=== PATIENT | female | born 1950 | race Caucasian/White ===

== ENCOUNTER 2018-09-16 21:47 | Inpatient (IN) | payer MEDICARE ==
[~2018-09-16] VITALS: Ht 160 cm; Wt 97.3 kg
[2018-09-16] MEDS ORDERED: ASPIRIN 81 MG TABLET CHEW PO ONE (22:00)
[2018-09-16] MEDS ORDERED: AZITHROMYCIN 500 MG TABLET PO ONE (22:00)
[2018-09-16] MEDS: CEFTRIAXONE PMX 1GM/50ML 50 ML IV SCH (22:00)
[2018-09-16] MEDS ORDERED: methylPREDNISolone SOD SUCC 125 MG/2 ML IVP ONE (22:00)
[2018-09-16] MEDS ORDERED: ALBUTEROL SULFATE 2.5 MG/3 ML NPPB ONE (22:00)
[2018-09-16] MEDS ORDERED: IRON1TAB60 PO (22:01)
[2018-09-16] MEDS ORDERED: ATOR20TA37 PO (22:01)
[2018-09-16] MEDS ORDERED: LISI-167 PO (22:01)
[2018-09-16] MEDS ORDERED: FURO80TA3 PO (22:01)
[2018-09-16] MEDS ORDERED: VITAMINS (22:01)
[2018-09-16] MEDS ORDERED: ASPIRIN 325 MG TABLET ONE (22:33)
[2018-09-16] MEDS ORDERED: AZITHROMYCIN 250 MG TABLET ONE (22:33)
[2018-09-16] MEDS ORDERED: CEFTRIAXONE PMX 1GM/50ML 50 ML ONE (22:33)
[2018-09-16] MEDS ORDERED: methylPREDNISolone SOD SUCC 125 MG/2 ML ONE (22:34)
--- NOTE | 2018-09-16 22:48 | NUR ---
LATE ENTRY: PT ARRIVES TO ED VIA EMS AND IS A [employer] DIV[employer]. PT ARRIVES FROM [facility] AFTER HAVING SOB FOR 2 DAYS AND GETTING WORSE AT THIS TIME. PT RPEORTS SHE HAS COPD AND WAS USIGN HER HOME NEBULIZER WITH NO RELIEF. PT REPROTS THAT HOME O2 NEEDS INCREASED TO 5 L. PT ON 3.5 L NC FOR US AND END TIDAL IN 28-34 AT THIS TIME AND MD AWARE. PT IS A/OX4 AND DOES HAVE LABORED BREATHING AT THIS TIME BUT IS ANXIOUS. PT CONNECTED TO ALL MONITORS AND CALL LIGHT IN REACH. EKG COMPLETED AND PIV PLACED BY THIS RN.
--- NOTE | 2018-09-16 22:51 | NUR ---
PT HAS BEEN MEDICATED PER EMAR AND GIVEN PILLOW FOR COMFORT.
[2018-09-16 22:56] LABS: BASOPHILS # (AUTO) 0.01 x10^3/uL (0-0.1); BASOPHILS % (AUTO) 0 % (0-1); EOSINOPHILS % (AUTO) 4 % (1-7); LYMPHOCYTES # (AUTO) 0.21 x10^3/uL (1-3.4); LYMPHOCYTES % (AUTO) 3 % (22-44); MD NO; MEAN CORPUSCULAR HEMOGLOBIN 28.7 pg (27.0-34.8); MEAN CORPUSCULAR HGB CONC 31.7 g/dL (32.4-35.8); MEAN CORPUSCULAR VOLUME 90.3 fL (80-100); MEAN PLATELET VOLUME 8.1 fL (7.4-10.4); MONOCYTES # (AUTO) 0.28 x10^3/uL (0.2-0.8); MONOCYTES % (AUTO) 4 % (2-9); NEUTROPHILS # (AUTO) 7.23 x10^3/uL (1.8-6.8); NEUTROPHILS % (AUTO) 90 % (42-75); PLATELET COUNT 152 x10^3/uL (130-400); RED BLOOD COUNT 3.03 x10^6/uL (3.82-5.3)
--- NOTE | 2018-09-16 23:01 | NUR ---
MD INFORMED OF INCREASED WOB. PT TO BE PLACED ON OPTIFLOW AT THIS TIME.
[2018-09-16 23:02] LABS: ALANINE AMINOTRANSFERASE 16 U/L (12-78); ALBUMIN 3.2 g/dL (3.4-5.0); ANION GAP 7 mmol/L (5-15); CALCIUM 8.3 mg/dL (8.5-10.1); CHLORIDE 104 mmol/L (98-107); CREATININE 3.69 mg/dL (0.55-1.02)
[2018-09-16 23:06] LABS: ALKALINE PHOSPHATASE 67 U/L (45-117); BILIRUBIN,TOTAL 0.7 mg/dL (0.2-1.0); TOTAL PROTEIN 6.3 g/dL (6.4-8.2); TROPONIN I 0.067 ng/mL (0.000-0.045)
--- NOTE | 2018-09-16 23:43 | NUR ---
NADIYA DAUGHTER CALLED AT THIS TO COME TO ED. INFORMED OF DAUGHTERS CONDITION AT THIS TIME. PT RESTING IN BED AT THIS TIME.
--- NOTE | 2018-09-17 00:11 | NUR ---
BEDSIDE REPORT TO IVANA ULLOA.
--- NOTE | 2018-09-17 00:24 | NUR ---
POC DISCUSSED WITH PT AND FAMILY. PT REMAINS HESITANT TO AGREE TO INTUBATION IF NEEDED. FAMILY AT BEDSIDE ENCOURAGING PT TO ALLOW INTUBATION IF NEEDED. PT ABLE TO SPEAK MOSTLY FULL SENTENCES. PT STATES SHE FEELS BETTER THAN WHEN SHE GOT HERE. PT AND FAMILY DENY FURTHER NEEDS AT THIS TIME.
--- NOTE | 2018-09-17 00:45 | NUR ---
FLAVIA NGUYEN HAS CONTACTED THE HOSPITALIST AGAIN REQUESTING HE COME SEE THE PT FOR ADMISSION.
--- NOTE | 2018-09-17 01:00 | NUR ---
PT STATING SHE HAS TO HAVE BM. PT AGREED TO BEDPAN. UNABLE TO PASS STOOL IN BED. PT ASSISTED TO BEDSIDE COMMODE AT THIS TIME. PT TOLERATED TRANSITION WELL.
--- NOTE | 2018-09-17 01:07 | NUR ---
PT HAD NO BM. FULL LINEN CHANGE PERFORMED. PT NOW BACK IN BED. PT ALSO TOLERATED THIS MOVE WELL. POC DISCUSSED. PT AND FAMILY DENY FURTHER NEEDS AT THIS TIME.
--- NOTE | 2018-09-17 01:16 | NUR ---
FLU SWAB OBTAINED AND TUBED TO LAB.
--- NOTE | 2018-09-17 01:19 | NUR ---
STILL AWAITING DR NIEVES AT THIS TIME. APOLOGIES GIVEN TO FAMILY AND PT FOR WAIT TIME. POC DISCUSSED. PT AND FAMILY DENY FURTHER NEEDS AT THIS TIME.
--- NOTE | 2018-09-17 01:28 | NUR ---
[facility] AT BEDSIDE.
[2018-09-17] MEDS ORDERED: DOCUSATE 100 MG CAPSULE PO PRN (01:30)
[2018-09-17] MEDS ORDERED: ONDANSETRON 2MG/ML, 2ML IVPush PRN (01:30)
[2018-09-17] MEDS ORDERED: OXYcodone IR 5MG TABLET PO PRN (01:30)
[2018-09-17] MEDS ORDERED: BISACODYL 10 MG SUPP PR PRN (01:30)
[2018-09-17] MEDS ORDERED: hydrALAzine 20 MG/ML, 1ML IVPush PRN (01:30)
[2018-09-17] MEDS ORDERED: ONDANSETRON ODT 4 MG PO PRN (01:30)
[2018-09-17] MEDS ORDERED: LABETALOL 5 MG/ML SYRINGE IVPush PRN (01:30)
[2018-09-17] MEDS ORDERED: PROMETHAZINE 25 MG/ML, 1ML IM PRN (01:30)
[2018-09-17] MEDS ORDERED: morphine SULFATE 10 MG/ML, 1ML IVPush PRN (01:30)
[2018-09-17] MEDS ORDERED: ACETAMINOPHEN 325 MG TABLET PO PRN (01:30)
[2018-09-17] MEDS ORDERED: POLYETHYLENE GLYCOL 17 GM PACKET PO PRN (01:30)
[2018-09-17 01:45] LABS: RAPID INFLUENZA A Negative (Negative); RAPID INFLUENZA B Negative (Negative)
[2018-09-17] MEDS ORDERED: ALPR0.25 PO (01:50)
[2018-09-17] MEDS ORDERED: HEPARIN 5,000 UNITS/ML, 1ML ONE (01:53)
[2018-09-17] MEDS: HEPARIN 5,000 UNITS/ML, 1ML SQ SCH ×4 (01:55→23:36)
[2018-09-17] MEDS ORDERED: ALBUTEROL/IPRATROPIUM 2.5MG/0.5MG, 3 ML NPPB PRN (02:00)
[2018-09-17 02:29] VITALS: BP 180/63
[2018-09-17] MEDS: INSULIN LISPRO 100 UNITS/ML, PEN SQ-INSULIN SCH ×5 (03:01→20:49)
[2018-09-17 03:08] LABS: FREE T4 (FREE THYROXINE) 1.15 ng/dL (0.76-1.46); THYROID STIMULATING HORMONE 1.42 mIU/L (0.358-3.740)
[2018-09-17 04:50] LABS: HEMOGLOBIN A1C 4.6 % (4.2-6.3)
[2018-09-17] MEDS ORDERED: ALBUTEROL/IPRATROPIUM 2.5MG/0.5MG, 3 ML NPPB SCH (07:00)
[2018-09-17] MEDS: MULTIVITAMINS WITH IRON TABLET PO SCH (08:41)
[2018-09-17] MEDS: LISINOPRIL 10 MG TABLET PO SCH ×2 (08:41→20:48)
[2018-09-17] MEDS: FUROSEMIDE 80 MG TABLET PO SCH (08:41)
[2018-09-17 14:29] VITALS: BP 158/66
[2018-09-17] MEDS ORDERED: VANCOMYCIN PER PHARMACY MC PRN (15:30)
[2018-09-17] MEDS ORDERED: PHARMACOKINETIC MONITORING MC PRN (16:00)
[2018-09-17] MEDS ORDERED: VANCOMYCIN 1,800 MG in SODIUM CHLORIDE 0.9% 250 ML IV ONE (16:00)
[2018-09-17] MEDS ORDERED: VANCOMYCIN 1,400 MG in SODIUM CHLORIDE 0.9% 250 ML IV ONE (16:00)
[2018-09-17] MEDS ORDERED: PHARMACOKINETIC CONSULTATION MC ONE (16:00)
[2018-09-17 20:00] VITALS: BP 182/69
[2018-09-17] MEDS ORDERED: ATORVASTATIN 40 MG TABLET PO SCH (21:00)
[2018-09-17] MEDS: CEFTRIAXONE PMX 1GM/50ML 50 ML IV SCH (22:38)
[2018-09-17] MEDS ORDERED: AZITHROMYCIN 500 MG in SODIUM CHLORIDE 0.9% 250 ML IV SCH (23:00)
[2018-09-17] MEDS ORDERED: CEFTRIAXONE PMX 1GM/50ML 50 ML IV SCH (23:00)
[2018-09-18 02:00] VITALS: BP 152/72
[2018-09-18 06:11] LABS: BASOPHILS # (AUTO) 0.01 x10^3/uL (0-0.1); BASOPHILS % (AUTO) 0 % (0-1); EOSINOPHILS # (AUTO) 0.01 x10^3/uL (0-0.4); EOSINOPHILS % (AUTO) 0 % (1-7); LYMPHOCYTES # (AUTO) 0.47 x10^3/uL (1-3.4); LYMPHOCYTES % (AUTO) 5 % (22-44); MD NO; MEAN CORPUSCULAR HEMOGLOBIN 28.7 pg (27.0-34.8); MEAN CORPUSCULAR VOLUME 89.9 fL (80-100); MEAN PLATELET VOLUME 7.9 fL (7.4-10.4); MONOCYTES # (AUTO) 0.65 x10^3/uL (0.2-0.8); MONOCYTES % (AUTO) 7 % (2-9); NEUTROPHILS # (AUTO) 8.18 x10^3/uL (1.8-6.8); NEUTROPHILS % (AUTO) 88 % (42-75); PLATELET COUNT 165 x10^3/uL (130-400); RED BLOOD COUNT 2.81 x10^6/uL (3.82-5.3); RED CELL DISTRIBUTION WIDTH 21.6 % (9.6-15.2)
[2018-09-18 06:24] LABS: CHLORIDE 102 mmol/L (98-107)
[2018-09-18 06:33] LABS: ALANINE AMINOTRANSFERASE 16 U/L (12-78); ALBUMIN 2.7 g/dL (3.4-5.0); ALKALINE PHOSPHATASE 58 U/L (45-117); ANION GAP 10 mmol/L (5-15); BILIRUBIN,TOTAL 0.4 mg/dL (0.2-1.0); CHOL/HDL RATIO 1.8; CHOLESTEROL, TOTAL 109 mg/dL (140-239); CREATININE 5.15 mg/dL (0.55-1.02); HDL CHOL % 54 % (28-40); HDL CHOLESTEROL (DIRECT) 59 mg/dL (40-60); LDL CHOLESTEROL,CALCULATED 33 mg/dL (54-169); LDL/HDL RATIO 0.6 (0.5-3.0); TOTAL PROTEIN 5.7 g/dL (6.4-8.2); TRIGLYCERIDES 87 mg/dL (50-200); VLDL CHOLESTEROL 17 mg/dL (0-25)
[2018-09-18] MEDS: INSULIN LISPRO 100 UNITS/ML, PEN SQ-INSULIN SCH ×2 (07:00→11:00)
[2018-09-18 07:49] LABS: TROPONIN I 0.039 ng/mL (0.000-0.045)
[2018-09-18 08:00] VITALS: BP 148/75
[2018-09-18] MEDS ORDERED: CEFD300C37 PO (08:58)
[2018-09-18] MEDS ORDERED: AZIT500T5 PO (08:58)
[2018-09-18] MEDS: HEPARIN 5,000 UNITS/ML, 1ML SQ SCH (09:24)
[2018-09-18] MEDS: LISINOPRIL 10 MG TABLET PO SCH (11:37)
[2018-09-18] MEDS ORDERED: ARANESP 100 MCG/ML **ESRD SQ SCH (13:00)
[2018-09-18 13:55] VITALS: BP 196/74
[2018-09-18] MEDS: MULTIVITAMINS WITH IRON TABLET PO SCH (14:10)
[2018-09-18] MEDS: FUROSEMIDE 80 MG TABLET PO SCH (14:12)
[2018-09-18 14:47] VITALS: BP 166/61
== END 2018-09-18 16:15 | disposition home or self-care (01) | DRG 177 ==
LOC: ED 23:50 → EDIP 09-17 00:06 → CCU 09-17 02:28 → 4EST 09-17 10:20 → DCLOUNGE 09-18 15:54
PROVIDERS: ADMIT Internal Medicine; ATTEND Internal Medicine
DX: J15.6 Pneumonia due to other Gram-negative bacteria (principal); N18.6 End stage renal disease; J96.21 Acute and chronic respiratory failure with hypoxia; E44.0 Moderate protein-calorie malnutrition; I13.2 Hypertensive heart and chronic kidney disease with heart failure and with stage 5 chronic kidney disease, or end stage renal disease; J44.0 Chronic obstructive pulmonary disease with (acute) lower respiratory infection; N17.9 Acute kidney failure, unspecified; J18.9 Pneumonia, unspecified organism; Z88.8 Allergy status to other drugs, medicaments and biological substances; D63.1 Anemia in chronic kidney disease; E03.9 Hypothyroidism, unspecified; E11.22 Type 2 diabetes mellitus with diabetic chronic kidney disease; E78.5 Hyperlipidemia, unspecified; I16.0 Hypertensive urgency; I50.9 Heart failure, unspecified; N25.0 Renal osteodystrophy; Z79.4 Long term (current) use of insulin; Z87.891 Personal history of nicotine dependence; Z90.710 Acquired absence of both cervix and uterus; Z99.2 Dependence on renal dialysis; Z90.49 Acquired absence of other specified parts of digestive tract
CPT/HCPCS: 36415; 36600; 71045; 80053; 80061; 82803; 82962; 83036; 83605; 83735; 83880; 84439; 84443; 84484; 85025; 87040; 87077; 87081; 87147; 87186; 87400; 93005; 94640; 96374; G0378; J0456; J0696; J0882; J1644; J3370; J7613; J7620; J1815; J2930; J7050